=== PATIENT | male | born 1955 | race Caucasian/White ===

== ENCOUNTER 2016-12-12 14:17 | Inpatient (IN) | payer OTHER ==
--- NOTE | 2016-12-12 14:38 | CPEKG ---
Heart Rate: 99 RR Interval: 606 P-R Interval: 172 QRSD Interval: 152 QT Interval: 400 QTC Interval: 514 P [place]: 63 QRS [place]: -70 T Wave [place]: 109 EKG Severity - ABNORMAL ECG - EKG Impression: SINUS RHYTHM EKG Impression: LEFT ATRIAL ABNORMALITY EKG Impression: LEFT BUNDLE BRANCH BLOCK Electronically Signed By: Luisana Thorne 12-Dec-2016 15:18:08
[2016-12-12] MEDS ORDERED: ASPIRIN 81 MG CHEWABLE TAB PO ONE (14:42)
[2016-12-12] MEDS ORDERED: NITROGLYCERIN/DEXTROSE 250 ML IV ONE (14:42)
--- NOTE | 2016-12-12 14:52 | EDPHY ---
H & P Smoking Status: Never smoked Time Seen by Provider: 12/12/16 14:34 HPI/ROS: HPI Shortness of breath. 61-year-old male by private vehicle. This patient has a history of pulmonary hypertension, uncontrolled hypertension and congestive heart failure. He presents the emergency department complaining of progressive worsening shortness of breath over the last 2 months. He reports over the last 2-3 days his shortness of breath has gotten significantly worse with any kind of exertion. He denies any associated chest pain. No cough. No fever. ROS: Constitutional: No fever, no chills. No weakness. Eyes: No discharge. No changes in vision. ENT: No sore throat. No nasal congestion or rhinorrhea. Respiratory: No cough. No shortness of breath. Cardiac: No chest pain, no palpitations. Gastrointestinal: No abdominal pain, no vomiting, no diarrhea. Genitourinary: No hematuria. No dysuria or increased frequency with urination. Musculoskeletal: No back pain. No neck pain. No myalgias or arthralgias. Skin: No rashes. Neurological: No headache. No focal weakness or altered sensation. Past medical history: Nonischemic cardiomyopathy, pulmonary hypertension, hypertensive emergencies, systolic congestive heart failure with an ejection fraction of 25%, type 2 diabetes, acute versus chronic renal failure, traumatic brain injury, mitral valve regurgitation. Social history: On disability, no living family members, nonsmoker. Physical Exam: General Appearance: Alert, no distress. This patient is responding to questions appropriately and in full sentences. This patient appears well- hydrated and well-nourished. Eyes: Pupils equal and round no pallor or injection. No lid edema, erythema or injection. Respiratory: There are no retractions, lungs are clear to auscultation with good air movement bilaterally. Cardiovascular: Regular rate and rhythm. No murmur. Gastrointestinal: Abdomen is soft and nontender, no masses, bowel sounds normal. No focal tenderness at McBurney's point. No Cueto sign. Neurological: Motor sensory function is grossly intact. Cranial nerves are normal. Gait is normal. Skin: Warm and dry, no rashes. Musculoskeletal: Neck is supple and nontender. Extremities are symmetrical. All joints range without pain or impingement. Psychiatric: No agitation. No depression. Imaging: Chest x-ray AP portable; the cardiac mediastinal silhouette is unremarkable. No evidence of infiltrate or pneumothorax. No acute cardiopulmonary disease process noted. Interpreted by me. EKG: EKG time is 2:36 p.m.: EKG shows a sinus rhythm with ventricular rate of 99, left bundle branch block with appropriate discordance. EKG compared to prior EKG from 2016 and is not show significant changes. Interpreted by me. Procedures: Emergency department course: IV placed. He was put on a bus monitor. EKG was performed immediately reviewed by myself. Vital signs reviewed. The patient is severely hypertensive. Plan will be to start him on a nitroglycerin drip at 100 micrograms/minute for hypertensive emergency, decrease preload and afterload. Nitroglycerin drip to be titrated up to 150-200 per minute if patient tolerates this medication well. 3:00 p.m., case discussed with Dr. Anu Edwards, emergency physician attending who is coming on duty. She assumed care of this patient at this time. 3:15 p.m., patient re-evaluated. Sitting upright. He states he feels much better. Blood pressure currently 169/114. Heart rate 81. Pulse oximetry 95% on 2 L by nasal cannula. Nitroglycerin drip currently 100 micrograms/minute. Care turned over to Dr. Anu Edwards. Differential Diagnosis: The differential diagnosis on this patient includes but is not limited to congestive heart failure exacerbation, pulmonary hypertension, acute coronary syndrome, hypertensive emergency. This represents a partial list of diagnoses considered. These considerations are based on history, physical exam, past history, reassessment and diagnostic testing. (Luisana Thorne) Constitutional: Initial Vital Signs Temperature (C) 36.4 C 12/12/16 14:25 Heart Rate 98 12/12/16 14:25 Respiratory Rate 20 12/12/16 14:25 Blood Pressure 209/159 H 12/12/16 14:25 O2 Sat (%) 96 12/12/16 14:25 O2 Delivery Mode Nasal Cannula O2 (L/minute) 2 Allergies/Adverse Reactions: No Known Allergies Allergy (Verified 12/12/16 14:30) Home Medications: Medication Instructions Recorded NK [No Known Home Meds] 12/12/16 Medical Decision Making - Diagnostics Imaging Results: Imaging Impressions Chest X-Ray 12/12/16 14:43 Impression: Marked enlargement of cardiac silhouette, increased. Consider pericardial effusion or progressive cardiomegaly. Other Provider: I assumed care of this patient from Dr. Thorne at 3:00 p.m.. At that time he had been started on a nitroglycerin intravenous drip. He remained on this while under my care. He had significant improvement in his blood pressures but continued with diastolic blood pressures over 100. At the time of my exam his heart was regular, lungs were clear, abdomen soft and nontender, mentation normal. He reported to me that he had been "nodding off" while driving and this is what prompted him to come to the emergency department. He has not been taking any antihypertensive or other medications. He remained chest pain-free while in the department. He did not have shortness of breath. I reviewed his chest x-ray which shows worsening cardiomegaly compared to a previous study. This is a single-view x-ray. I have also reviewed his laboratory studies. He has an elevated BNP, mildly elevated troponin, and mildly elevated D-dimer. At this point in time I do not suspect PE and have not pursued CT angiogram of the chest. He is being admitted to Dr. Sirena Torres. (Anu Edwards) - Data Points Laboratory Results: Laboratory Results 12/12/16 14:45 12/12/16 14:45 12/12/16 12/12/16 12/12/16 14:45 14:45 14:45 WBC 11.80 10^3/uL H 10^3/uL (3.80-9.50) RBC 5.88 10^6/uL 10^6/uL (4.40-6.38) Hgb 16.7 g/dL g/dL (13.7-17.5) Hct 50.5 % % (40.0-51.0) MCV 85.9 fL fL (81.5-99.8) MCH 28.4 pg pg (27.9-34.1) MCHC 33.1 g/dL g/dL (32.4-36.7) RDW 15.0 % % (11.5-15.2) Plt Count 269 10^3/uL 10^3/uL (150-400) MPV 10.9 fL fL (8.7-11.7) Neut % (Auto) 74.5 % H % (39.3-74.2) Lymph % (Auto) 15.0 % % (15.0-45.0) [place] % (Auto) 6.9 % % (4.5-13.0) Eos % (Auto) 2.5 % % (0.6-7.6) Baso % (Auto) 0.7 % % (0.3-1.7) Nucleat RBC Rel Count 0.0 % % (0.0-0.2) Absolute Neuts (auto) 8.78 10^3/uL H 10^3/uL (1.70-6.50) Absolute Lymphs (auto) 1.77 10^3/uL 10^3/uL (1.00-3.00) Absolute Monos (auto) 0.82 10^3/uL H 10^3/uL (0.30-0.80) Absolute Eos (auto) 0.30 10^3/uL 10^3/uL (0.03-0.40) Absolute Basos (auto) 0.08 10^3/uL 10^3/uL (0.02-0.10) Absolute Nucleated RBC 0.00 10^3/uL 10^3/uL (0-0.01) Immature Gran % 0.4 % % (0.0-1.1) Immature Gran # 0.05 10^3/uL 10^3/uL (0.00-0.10) PT 14.7 SEC SEC (12.0-15.0) INR 1.15 (0.83-1.16) APTT 28.5 SEC SEC (23.0-38.0) D-Dimer 0.76 ug/mLFEU H ug/mLFEU (0.00-0.50) Sodium 141 mEq/L mEq/L (134-144) Potassium 4.2 mEq/L mEq/L (3.5-5.2) Chloride 108 mEq/L mEq/L (97-110) Carbon Dioxide 18 mEq/l L mEq/l (22-31) Anion Gap 15 mEq/L mEq/L (8-16) BUN 26 mg/dL H mg/dL (7-23) Creatinine 1.4 mg/dL H mg/dL (0.7-1.3) Estimated GFR 51 Glucose 140 mg/dL H mg/dL (70-100) Calcium 9.6 mg/dL mg/dL (8.5-10.4) Creatine Kinase 219 IU/L IU/L (0-224) CK-MB (CK-2) Fraction 5.74 ng/mL H ng/mL (0-3.19) CK-MB (CK-2) % 2.6 % % (0.0-4.0) Creatine Kinase Interp NEGATIVE (NEGATIVE) Troponin I 0.063 ng/mL H ng/mL (0-0.034) NT-Pro-B Natriuret Pep 6140 pg/mL H pg/mL (0-125) Medications Given: Discontinued Medications Aspirin (Aspirin) 324 mg PO EDNOW ONE Stop: 12/12/16 14:43 Last Admin: 12/12/16 15:00 Dose: 243 mg Nitroglycerin/Dextrose (Nitroglycerin 200 Mcg/Ml (Premix)) 250 mls @ 0 mls/hr IV CONT ONE; Titrate PRN Reason: Protocol Stop: 12/12/16 14:43 Last Admin: 12/12/16 14:58 Dose: 250 mls Departure - Departure Disposition: [facility] In[facility] Acute Clinical Impression: Hypertensive emergency
[2016-12-12 14:56] LABS: % IMMATURE GRANULYOCYTES 0.4 % (0.0-1.1); ABSOLUTE IMMATURE GRANULOCYTES 0.05 10^3/uL (0.00-0.10); ADD DIFF? NO; ADD MORPH? NO; ADD SCAN? NO; ATYPICAL LYMPHOCYTE FLAG 0 (0-99); FRAGMENT RBC FLAG 0 (0-99); HEMATOCRIT 50.5 % (40.0-51.0); HEMOGLOBIN 16.7 g/dL (13.7-17.5); LEFT SHIFT FLG 0 (0-99); LIPEMIA HEMOLYSIS FLAG 80 (0-99); MEAN CELL HEMOGLOBIN 28.4 pg (27.9-34.1); MEAN CELL HEMOGLOBIN CONCENTR. 33.1 g/dL (32.4-36.7); MEAN CELL VOLUME 85.9 fL (81.5-99.8); MEAN PLATELET VOLUME 10.9 fL (8.7-11.7); PLATELET CLUMPS FLAG 0 (0-99); PLATELET COUNT 269 10^3/uL (150-400); RED BLOOD CELL COUNT 5.88 10^6/uL (4.40-6.38)
[2016-12-12 15:05] LABS: INR 1.15 (0.83-1.16); PROTIME(PATIENT) 14.7 SEC (12.0-15.0)
[2016-12-12 15:16] LABS: APTT 28.5 SEC (23.0-38.0)
[2016-12-12 15:25] LABS: ANION GAP 15 mEq/L (8-16); CALCIUM 9.6 mg/dL (8.5-10.4); CARBON DIOXIDE 18 mEq/l (22-31); CHLORIDE 108 mEq/L (97-110); CREATININE 1.4 mg/dL (0.7-1.3); GLOMERULAR FILTRATION RATE 51; GLUCOSE 140 mg/dL (70-100); POTASSIUM 4.2 mEq/L (3.5-5.2); SODIUM 141 mEq/L (134-144)
[2016-12-12 15:37] LABS: TROPONIN I 0.063 ng/mL (0-0.034)
[2016-12-12 15:44] LABS: CREATINE KINASE-MB FRACTION 5.74 ng/mL (0-3.19)
[2016-12-12 15:47] LABS: CK-MB INTERPRETATION NEGATIVE (NEGATIVE)
[2016-12-12] MEDS ORDERED: ACETAMINOPHEN 325 MG TAB PO PRN (18:15)
[2016-12-12] MEDS ORDERED: ONDANSETRON 4 MG/2 ML VIAL IVP PRN (18:15)
[2016-12-12] MEDS ORDERED: ONDANSETRON DISINTEGRATING 4 MG TAB PO PRN (18:15)
[2016-12-12] MEDS ORDERED: LABETALOL HCL 200 MG in D5W 200 ML IV SCH (18:15)
[2016-12-12] MEDS: LISINOPRIL 10 MG TAB PO SCH (18:39)
[2016-12-12] MEDS: ATORVASTATIN CALCIUM 40 MG TAB PO SCH (18:40)
[2016-12-12] MEDS ORDERED: D50W 25 GM/50 ML SYR IVP PRN (18:45)
[2016-12-12] MEDS ORDERED: FUROSEMIDE 20 MG/2 ML VIAL IVP ONE (18:48)
[2016-12-12] MEDS ORDERED: IOPAMIDOL (ISOVUE 370) 100 ML BTL IV ONE (19:11)
--- NOTE | 2016-12-12 19:38 | GHP ---
[f rep st] HISTORY AND PHYSICAL DATE OF ADMISSION: 12/12/2016 CHIEF COMPLAINT: Dyspnea and mental status changes. HISTORY OF PRESENT ILLNESS: The patient is a 61-year-old male with a history of hypertension, nonischemic cardiomyopathy, chronic kidney disease and type 2 diabetes, who presents to the emergency department with 2 months of worsening shortness of breath and 2-3 days of mental status changes. He was admitted to the hospital in July of 2015 with hypertensive emergency. During the course of that hospitalization, he required 4 agents to achieve blood pressure control. He also underwent angiogram at that time and was found to have a nonischemic cardiomyopathy with an ejection fraction of 25%. He was apparently compliant with his medications for a brief period of time after that and followup echocardiogram in the [facility] in 09/2015 revealed an improved ejection fraction of 63% as well as improvement in his severe mitral regurgitation to mild to moderate MR. Since that time, he states he stopped all of his medications completely. He has not taken any medications for the past 8 months. He feels the medications cause side effects and are more trouble than they are worth, citing he doesn't care if he has a heart attack or stroke. In addition to worsening shortness of breath and dyspnea on exertion, he also endorses orthopnea. He has minimal lower extremity edema. At this time, he denies chest pain. He continues to feel slightly short of breath. He also reports that while driving his car, he began to feel like he was drifting off and could not think clearly. This seems to have resolved since being started on a nitroglycerin drip in the emergency department. His blood pressure on arrival was 209/159. Here on the step-down unit, it was 147/125. He is admitted to the hospital for further management. PAST MEDICAL HISTORY: 1. Nonischemic cardiomyopathy. Echo September of 2015, EF improved from 25% to 63%. 2. Chronic systolic heart failure. 3. Poorly controlled hypertension. 4. Severe pulmonary hypertension. 5. Type 2 diabetes. 6. Chronic kidney disease with a baseline creatinine of 1.4. 7. Traumatic brain injury. 8. Severe mitral regurgitation. On 09/2015 echo, this improved to mild to moderate. 9. Hyperlipidemia. 10. Nonobstructive coronary artery disease. ALLERGIES: He has no known drug allergies. SOCIAL HISTORY: The patient is unemployed. He states this is due to his brain injury. He has previously worked in finance. He is apparently on disability. He reports he is a lifetime nonsmoker. Rare alcohol use. Denies drug use. He lives alone. FAMILY HISTORY: He states both his parents of of old age and denies a family history of heart attacks, stroke, or diabetes. REVIEW OF SYSTEMS: A 10-point review of systems was performed and is negative except as per HPI. OBJECTIVE: VITAL SIGNS: Temperature is 36.4, current blood pressure 147/125, heart rate 68, respiratory rate 18. He is 96% on 2 L of oxygen by nasal cannula. GENERAL: The patient is awake, alert, and oriented, in no acute distress. He is a bit scattered in his history. HEENT: Head is atraumatic, normocephalic. Pupils equal, round, react to light. Extraocular muscles are intact. Oropharynx is clear. Mucous membranes are moist. NECK: Supple. He has elevated jugular venous pressure. HEART: Regular rate and rhythm without murmur. LUNGS: Reveal faint crackles at the bases bilaterally. ABDOMEN: Soft , obese, nondistended, nontender with normoactive bowel sounds. EXTREMITIES: He has trace to 1+ bilateral lower extremity edema. NEUROLOGIC: Grossly nonfocal. LABORATORY DATA: CBC reveals a white blood cell count of 11.8, normal hemoglobin, D-dimer is elevated at 0.76. INR is 1.15. Basic metabolic panel shows normal potassium of 4.2, CO2 was 18, BUN 26, creatinine 1.4, glucose is 140, troponin is slightly elevated at 0.063. NT-proBNP is 6140, creatine kinase 219. Chest x-ray is personally reviewed and interpreted and reveals cardiomegaly which is increased from his previous x-ray. There are no obvious infiltrates or pleural effusions. EKG shows a left bundle branch block which was present on prior EKGs. ASSESSMENT AND PLAN: The patient is a 61-year-old male with a history of hypertension, diabetes, nonischemic cardiomyopathy and chronic kidney disease who presents to the emergency department with shortness of breath and mental status changes and was found to have severe hypertension with signs of end organ damage. 1. Hypertensive emergency. He has been chest pain free and his mentation has normalized. The patient was started on a nitroglycerin drip in the ED. I will change this to IV labetalol and titrate to a goal SBP of 160 to 180. Will also start him on oral lisinopril and up titrate this as necessary. Would like to slowly bring his BP down given his presentation was consistent with hypertensive encephalopathy and want to avoid hypoperfusion. When he was discharged from the hospital in July 2015, he was on lisinopril, Coreg, Norvasc , and HCTZ. Has not taken any medications for >8 months. 2. Nonischemic cardiomyopathy. As above, his ejection fraction in July of 2015 by angiogram was 25%. This improved to 63% by September of 2015 during a brief time when he was compliant with his medications. He currently appears slightly volume up and will give a dose of IV Lasix. An echocardiogram is ordered. 3. History of severe mitral regurgitation. This improved to mild to moderate mitral regurg in September of 2015, though he has not had any followup echoes since then and has been off all of his medications for at least 8 months. As above, we will recheck an echocardiogram. Cardiology will consult in the morning. 4. Chronic kidney disease. His creatinine is at baseline of 1.4. 5. Type 2 diabetes mellitus. He has previously been diet controlled. He presents with a blood sugar of 140. We will check an A1c and an order sliding scale insulin for blood sugar control for now. 6. Hyperlipidemia. Will restart a statin. 7. Nonobstructive coronary artery disease with mildly elevated troponin. The patient is chest pain-free. His EKG shows a left bundle which was present in 2016. I suspect this is a demand ischemia given his severe hypertension on arrival; however, we will trend his troponin. Again, echo is pending. 8. Code status. Patient is full code. 9. Deep venous thrombosis prophylaxis. Lovenox. DISPOSITION: Patient is admitted to inpatient status. Will likely require greater than 48 hours hospitalization for ongoing management of his hypertensive emergency and nonischemic cardiomyopathy. /[id number]/MODL MTDD
[2016-12-13 05:52] LABS: % IMMATURE GRANULYOCYTES 0.4 % (0.0-1.1); ABSOLUTE IMMATURE GRANULOCYTES 0.04 10^3/uL (0.00-0.10); ADD DIFF? NO; ADD MORPH? NO; ADD SCAN? NO; ATYPICAL LYMPHOCYTE FLAG 0 (0-99); FRAGMENT RBC FLAG 0 (0-99); HEMATOCRIT 41.1 % (40.0-51.0); HEMOGLOBIN 13.4 g/dL (13.7-17.5); LEFT SHIFT FLG 0 (0-99); LIPEMIA HEMOLYSIS FLAG 80 (0-99); MEAN CELL HEMOGLOBIN 28.3 pg (27.9-34.1); MEAN CELL HEMOGLOBIN CONCENTR. 32.6 g/dL (32.4-36.7); MEAN CELL VOLUME 86.7 fL (81.5-99.8); MEAN PLATELET VOLUME 11.1 fL (8.7-11.7); PLATELET CLUMPS FLAG 0 (0-99); PLATELET COUNT 208 10^3/uL (150-400); RED BLOOD CELL COUNT 4.74 10^6/uL (4.40-6.38)
[2016-12-13 06:19] LABS: ANION GAP 13 mEq/L (8-16); CALCIUM 8.8 mg/dL (8.5-10.4); CARBON DIOXIDE 19 mEq/l (22-31); CHLORIDE 107 mEq/L (97-110); CREATININE 1.2 mg/dL (0.7-1.3); GLOMERULAR FILTRATION RATE > 60; GLUCOSE 98 mg/dL (70-100); POTASSIUM 3.8 mEq/L (3.5-5.2); SODIUM 139 mEq/L (134-144)
[2016-12-13] MEDS ORDERED: INSULIN LISPRO 100 UNIT/ML SC SCH (08:00)
[2016-12-13] MEDS: LISINOPRIL 10 MG TAB PO SCH (08:45)
[2016-12-13] MEDS: ATORVASTATIN CALCIUM 40 MG TAB PO SCH (08:45)
[2016-12-13 08:55] VITALS: RESP 20
[2016-12-13] MEDS ORDERED: ENOXAPARIN 40 MG/0.4 ML SYR SC SCH (09:00)
[2016-12-13] MEDS ORDERED: ASPIRIN 81 MG CHEWABLE TAB PO SCH (09:00)
--- NOTE | 2016-12-13 10:43 | ECHO ---
[id number] + + [address] : : [place] [address] : : [phone] + + Adult Echocardiographic Report + -+ :Name: Manoj SERRATO Date: 12/13/2016 09:31 AM : : Hospital Admission Number: [id number] Location: 24 2: :: 1955 Gender: Male Height: 67 in : :Age: 61 yrs Race: WH Weight: 180 lb : :Reason For Study: Hypertensive urgency : : BSA: 1.9 meters2 : :History: Severe MR, NICM : + -+ MMode/2D Measurements \T\ Calculations IVSd: 1.7 cm LVIDd: 4.5 cm FS: 15.8 % LVOT diam: 2.1 cm LVPWd: 1.1 cm LVIDs: 3.8 cm EDV(Teich): LVOT area: 91.5 ml 3.5 cm2 ESV(Teich): 60.9 ml EF(Teich): 33.5 % LVLd ap4: 9.2 cm SV(MOD-sp4): EDV(MOD-sp4): 56.0 ml 123.0 ml LVLs ap4: 9.0 cm ESV(MOD-sp4): 67.0 ml EF(MOD-sp4): 45.5 % Normal Measurement Values: + + :LVIDd (3.5-5.7cm) IVSd (0.6-1.1cm) LVPWd (0.6-1.1cm) Aortic Root (2.0-3.7cm)Left Atrium (1.5-4.0cm): :LV Vol(d) (76-115ml) LV Vol(s) (29-48ml) Ejec Fraction (50-65%)PV Eagle (0.6- 1.2m/s) TV Eagle (0.4-1.0m/s) : :MV E Eagle (0.8-1.0m/s)MV A Eagle (0.3-1.0m/s)LVOT Eagle (0.7-1.2m/s) Asc Ao Eagle ( 0.9-1.8m/s) : + + Doppler Measurements \T\ Calculations MV E max eagle: MV V2 mean: Ao mean PG: LV V1 max: 82.7 cm/sec 43.2 cm/sec 2.5 mmHg 64.7 cm/sec MV dec time: MV mean PG: Ao V2 mean: LV V1 max P.17 sec 0.85 mmHg 76.3 cm/sec 1.7 mmHg MV V2 VTI: 23.5 cm Ao V2 VTI: 16.1 cm LV V1 mean PG: MVA(VTI): 1.7 cm2 MERISSA(I,D): 2.4 cm2 0.86 mmHg LV V1 mean: 42.3 cm/sec LV V1 VTI: 11.1 cm SV(LVOT): 39.1 ml PA V2 max: PI end-d eagle: 70.8 cm/sec 81.4 cm/sec PA max P.0 mmHg Left Ventricle The left ventricle is normal in size. There is mild concentric left ventricular hypertrophy. Ejection Fraction = 40-45%. Inferolateral, inferior, and septal hypkinesis. Flattened septum is consistent with RV pressure/volume overload. Right Ventricle The right ventricle is grossly normal size. The right ventricular systolic function is moderately reduced. Atria The left atrial size is normal. Right atrial size is normal. Mitral Valve Calcified mitral apparatus. There is mild mitral regurgitation. Tricuspid Valve The tricuspid valve is normal in structure and function. There is trace tricuspid regurgitation. Aortic Valve The aortic valve is normal in structure and function. There is no aortic stenosis. Mild aortic regurgitation. Pulmonic Valve The pulmonic valve is not well visualized. Mild pulmonic valvular regurgitation. Great Vessels The aortic root is normal size. Pericardium/Pleural There is a fat pad seen. There is no pericardial effusion. Conclusion A complete two-dimensional transthoracic echocardiogram was performed (2D, M-mode, Doppler and color flow Doppler). (1) Left ventricular systolic ejection fraction was mildly suppressed (40- 45%) - inferior, inferolateral, and sepal hypokinesis was noted (2) Mild concentric left ventricular hypertrophy (3) Diastolic function was present (4) [place] normal right ventricular size and mild to moderate reduction in systolic function (5) Borderline dilation of the left atrium, with mild dilation of the right atrium noted (6) Mild to moderate mitral regurgitation with calcified mitral apparatus (7) Trileaflet aortic valve with sclerosis, but no stenosis. Mild insufficiency was noted (8) Physiologic tricuspid regurgitation (9) Poor visualization of the pulmonic valve with mild insufficiency by doppler (10) No pericardial effusion (11) In comparison to prior echocardiogram from 08-27-15, there is continued mitral valve pathology (albeit somewhat improved from prior study) and ongoing wall motion abnormalities with similar distribution and estimate on LVEF. RVSP was not able to be calculated in this study (previously elevated to >70 mm Hg). Final Reading Physician: Columba Rea signed on 12/13/2016 10:43 AM Ordering Physician: Sirena Torres Performed By: Gertrudis Pulliam
[2016-12-13] MEDS ORDERED: LISINOPRIL/HCTZ 20/12.5MG 1 EA TAB PO SCH (11:00)
[2016-12-13 12:54] VITALS: BP 137/89; PULSE 68; TEMP 98.6; O2SAT 93
[2016-12-14 00:58] LABS: HEMOGLOBIN A1C 6.7 % (4.0-6.0)
--- NOTE | 2016-12-14 02:48 | GDS ---
[f rep st] DISCHARGE SUMMARY DISCHARGE DIAGNOSES: 1. Hypertensive emergency. 2. Nonischemic cardiomyopathy. 3. Pulmonary hypertension. 4. Type 2 diabetes. 5. Chronic kidney disease. 6. History of traumatic brain injury. 7. Severe mitral regurgitation. 8. Hyperlipidemia. 9. Nonobstructive coronary artery disease. HISTORY OF PRESENT ILLNESS: A 61-year-old male with many medical comorbidities, who presents with c omplaints of shortness of breath and encephalopathy. For details of patient's initial presentation, please see the history and physical dated 12/12/2016. CONSULTATIVE SERVICES: None. PROCEDURES: On 12/13/2016, patient had a transthoracic echocardiogram that shows segmental wall mot ion abnormalities in the inferior, inferolateral, and septal distributions consistent with previous imaging. Ejection fraction unchanged at 40% to 45%. The patient has moderate mitral regurgitation. HOSPITAL COURSE BY ISSUE: 1. Hypertensive emergency. Patient presented with shortness of breath and confusion, mental status changes. He was admitted to the ICU, placed on labetalol drip, and had rapid titration of his bloo d pressure from a systolic 200 overnight to systolics in the 130s. Patient is mentating normally, p er his report. The morning after he has been initiated on oral lisinopril/hydrochlorothiazide combi nation after extensive conversations with the patient about what he is willing to take. The patient has had previous hospitalizations and been discharged on multi-drug regimens, which he reports he n ever even filled at the pharmacy. Patient is in agreement to try Zestoretic, which is a 2 drug 1 pi ll combination, once a day and follow with the procurement professional logistics in the outpatient setting. To be noted that I spent extensive time explaining the progressive pathophysiology of uncontrolled hypertension, particularly in the setting of concurrent nonischemic cardiomyopathy, CKD, and diabetes. Patient e xpresses an understanding that these are progressive disease and untreated will lead to . Padma ent is adamant that he will take very few medications and is willing to only try Zestoretic until se en in the Cardiology Clinic. 2. Nonischemic cardiomyopathy. Echo imaging shows stable ejection fraction and wall motion abnorma lities. Again, patient is refusing appropriate medications for the treatment of his cardiomyopathy. We are initiating low-dose GEGE and the Zestoretic, and again patient will follow in the outpatient setting. 3. Type 2 diabetes. Patient is refusing medications for treatment of this. 4. CKD. Patient has had progression of his renal dysfunction since 2011. He is aware that his com orbid conditions of hypertension and diabetes are his risks factors and that untreated this will pro yane to complete kidney dysfunction and the need for hemodialysis. 5. Indeterminate troponin. These are similar level as those seen on his last hospitalization with nonocclusive coronary artery disease on catheterization. Patient is not interested in having cardia c catheterization or additional risk stratification at this time. He will follow in [facility] or outpatient monitoring. MEDICATIONS AT THE TIME OF DISPOSITION: Please reference med rec printed on 12/13/2016. FOLLOWUP APPOINTMENTS: Include in the next 1-2 weeks. PENDING STUDIES: At the time of this dictation are none. TIME SPENT: I spent greater than 30 minutes in the planning and coordination of this discharge. /[id number]/MODL
== END 2016-12-13 14:36 | disposition home or self-care (01) | DRG 304 ==
LOC: F2N 17:57
PROVIDERS: ADMIT Hospitalist; ATTEND Hospitalist
DX: I16.0 Hypertensive urgency (principal); G93.40 Encephalopathy, unspecified; I25.5 Ischemic cardiomyopathy; I27.2 Other secondary pulmonary hypertension; E11.9 Type 2 diabetes mellitus without complications; I12.9 Hypertensive chronic kidney disease with stage 1 through stage 4 chronic kidney disease, or unspecified chronic kidney disease; N18.9 Chronic kidney disease, unspecified; I34.0 Nonrheumatic mitral (valve) insufficiency; E78.5 Hyperlipidemia, unspecified; I25.10 Atherosclerotic heart disease of native coronary artery without angina pectoris
CPT/HCPCS: 96365; 96366; J1650; J1940; J3490; Q9967

== ENCOUNTER 2017-01-01 10:24 | Inpatient (IN) | payer OTHER ==
--- NOTE | 2017-01-01 10:49 | CPEKG ---
Heart Rate: 122 RR Interval: 492 QRSD Interval: 156 QT Interval: 392 QTC Interval: 559 QRS [place]: -67 T Wave [place]: 110 EKG Severity - ABNORMAL ECG - EKG Impression: ATRIAL FIBRILLATION EKG Impression: LEFT BUNDLE BRANCH BLOCK EKG Impression: INFERIOR Q WAVES, POSSIBLY DUE TO LBBB Electronically Signed By: Case Lion 01-Jan-2017 13:29:02
[2017-01-01] MEDS ORDERED: DILTIAZEM 125 MG in D5W 125 ML IV ONE (10:57)
[2017-01-01] MEDS ORDERED: DABIGATRAN ETEXILATE MESYL 150 MG CAP PO ONE (10:57)
--- NOTE | 2017-01-01 11:02 | EDPHY ---
H & P Time Seen by Provider: 01/01/17 10:35 HPI/ROS: CHIEF COMPLAINT: Shortness of breath and weakness and hypertension HISTORY OF PRESENT ILLNESS: Patient was discharged on December 13 after being admitted for hypertensive emergency and nonischemic cardiomyopathy. He did not continue his medications except for aspirin because he said that he lost vision in his left eye a couple of days after being discharged and made him feel terrible so he stopped. He presents with continued nausea, a week of worsening shortness of breath, fatigue, and hypertension. Symptoms are severe but not associated with chest pain or headache or lower extremity swelling. REVIEW OF SYSTEMS: Eye: no change in vision, vision normal today ENT: no sore throat Cardiac: no chest pain or syncope Pulmonary: HPI Abdomen: no vomiting, diarrhea, abdominal pain Musculoskeletal: no back pain or leg swelling Skin: no rash Neuro: no headache Constitutional: no fever : no urinary symptoms A comprehensive 10 point review of systems is otherwise negative aside from elements mentioned in the history of present illness. PAST MEDICAL HISTORY: Discharge summary dated 12/13/2016 personally reviewed includes hypertension, nonischemic cardiomyopathy, pulmonary hypertension, type 2 diabetes, history traumatic brain injury, mitral regurgitation, hyperlipidemia. Chronic kidney disease. Social history: Nonsmoker General Appearance: Alert and conversant, cooperative. Eyes: No scleral icterus. ENT, Mouth: Normal mucous membranes. Respiratory: Normal respiratory effort, breath sounds equal, lungs are clear to auscultation. Cardiovascular: Irregular rate and rhythm tachycardic Gastrointestinal: Abdomen is soft and non tender. Neurological: Alert and oriented x3. Normally conversant. Face symmetric, normal movement and sensation in all extremities. Skin: Warm and dry, no rashes. Musculoskeletal: No peripheral edema and no joint swelling. No calf tenderness. Psychiatric: Not agitated. Emergency Department course/MDM: Patient presents with atrial fibrillation and hypertension, symptomatic. Diltiazem drip started in the emergency department, anticoagulation discussed and consented. Oral Pradaxa 150. 1255: hr 104, decreased. Smoking Status: Never smoked Constitutional: Initial Vital Signs Temperature (C) 36.3 C 01/01/17 10:27 Heart Rate 129 H 01/01/17 10:27 Respiratory Rate 16 01/01/17 10:27 Blood Pressure 154/131 H 01/01/17 10:27 O2 Sat (%) 98 01/01/17 10:27 O2 Delivery Mode Room Air Allergies/Adverse Reactions: No Known Allergies Allergy (Verified 12/12/16 14:30) Home Medications: Medication Instructions Recorded Aspirin [Aspirin 81mg (*)] 81 mg PO HS 01/01/17 Herbals/Supplements -Info Only 1 ea PO DAILY 01/01/17 Medical Decision Making - Diagnostics EKG Interpretation: 12-lead EKG interpreted by me; official reading is in trace master. My interpretation is atrial fibrillation rate 122 with left bundle branch block. Imaging Results: Imaging Impressions Chest X-Ray 01/01/17 10:57 Impression: Cardiomegaly with stable peribronchial thickening, which could be related to mild fluid overload, without freddy failure Differential Diagnosis: Differential diagnosis considered for shortness of breath including but not limited to pulmonary infectious process, COPD, asthma, pulmonary embolus and congestive heart failure. Consult/Admit Bed Type: [place] [id number] Critical Care Time: Critical care time spent by me, Dr. Lion, exclusively with the care of this patient was [30] minutes, exclusive of PA or PRODUCT MARKETING CONSULTANT time and exclusive of separate procedures. The organ system at risk was cardiovascular and I ordered diltiazem , oral Pradaxa, discussion with hospitalist service to stabilize the patient and prevent worsening of the patient's condition. - Data Points Laboratory Results: Laboratory Results 01/01/17 10:53 01/01/17 10:53 01/01/17 01/01/17 10:53 10:53 WBC 11.11 10^3/uL H 10^3/uL (3.80-9.50) RBC 6.26 10^6/uL 10^6/uL (4.40-6.38) Hgb 17.4 g/dL g/dL (13.7-17.5) Hct 52.8 % H % (40.0-51.0) MCV 84.3 fL fL (81.5-99.8) MCH 27.8 pg L pg (27.9-34.1) MCHC 33.0 g/dL g/dL (32.4-36.7) RDW 16.1 % H % (11.5-15.2) Plt Count 278 10^3/uL 10^3/uL (150-400) MPV 11.2 fL fL (8.7-11.7) Neut % (Auto) 73.2 % % (39.3-74.2) Lymph % (Auto) 16.1 % % (15.0-45.0) [place] % (Auto) 8.1 % % (4.5-13.0) Eos % (Auto) 1.7 % % (0.6-7.6) Baso % (Auto) 0.5 % % (0.3-1.7) Nucleat RBC Rel Count 0.0 % % (0.0-0.2) Absolute Neuts (auto) 8.13 10^3/uL H 10^3/uL (1.70-6.50) Absolute Lymphs (auto) 1.79 10^3/uL 10^3/uL (1.00-3.00) Absolute Monos (auto) 0.90 10^3/uL H 10^3/uL (0.30-0.80) Absolute Eos (auto) 0.19 10^3/uL 10^3/uL (0.03-0.40) Absolute Basos (auto) 0.06 10^3/uL 10^3/uL (0.02-0.10) Absolute Nucleated RBC 0.00 10^3/uL 10^3/uL (0-0.01) Immature Gran % 0.4 % % (0.0-1.1) Immature Gran # 0.04 10^3/uL 10^3/uL (0.00-0.10) Sodium 134 mEq/L mEq/L (134-144) Potassium 4.2 mEq/L mEq/L (3.5-5.2) Chloride 100 mEq/L mEq/L (97-110) Carbon Dioxide 20 mEq/l L mEq/l (22-31) Anion Gap 14 mEq/L mEq/L (8-16) BUN 33 mg/dL H mg/dL (7-23) Creatinine 1.5 mg/dL H mg/dL (0.7-1.3) Estimated GFR 47 Glucose 141 mg/dL H mg/dL (70-100) Calcium 9.8 mg/dL mg/dL (8.5-10.4) Troponin I 0.051 ng/mL H ng/mL (0-0.034) NT-Pro-B Natriuret Pep 7140 pg/mL H pg/mL (0-125) Medications Given: Discontinued Medications Dabigatran (Pradaxa) 150 mg PO EDNOW ONE Stop: 01/01/17 10:58 Last Admin: 01/01/17 11:37 Dose: 150 mg Diltiazem HCl 125 mg/ Dextrose 125 mls @ 0 mls/hr IV EDNOW ONE; As Directed PRN Reason: Protocol Stop: 01/01/17 10:58 Last Admin: 01/01/17 11:38 Dose: 125 mls Departure - Departure Disposition: [facility] Acute Clinical Impression: Elevated troponin Atrial fibrillation Qualifiers: Atrial fibrillation type: paroxysmal Qualified Code(s): I48.0 - Paroxysmal atrial fibrillation Condition: Fair
[2017-01-01 11:04] LABS: % IMMATURE GRANULYOCYTES 0.4 % (0.0-1.1); ABSOLUTE IMMATURE GRANULOCYTES 0.04 10^3/uL (0.00-0.10); ADD DIFF? NO; ADD MORPH? NO; ADD SCAN? NO; ATYPICAL LYMPHOCYTE FLAG 0 (0-99); FRAGMENT RBC FLAG 0 (0-99); HEMATOCRIT 52.8 % (40.0-51.0); HEMOGLOBIN 17.4 g/dL (13.7-17.5); LEFT SHIFT FLG 0 (0-99); LIPEMIA HEMOLYSIS FLAG 80 (0-99); MEAN CELL HEMOGLOBIN 27.8 pg (27.9-34.1); MEAN CELL VOLUME 84.3 fL (81.5-99.8); MEAN PLATELET VOLUME 11.2 fL (8.7-11.7); PLATELET CLUMPS FLAG 0 (0-99); PLATELET COUNT 278 10^3/uL (150-400); RED BLOOD CELL COUNT 6.26 10^6/uL (4.40-6.38); RED CELL DISTRIBUTION WIDTH 16.1 % (11.5-15.2)
[2017-01-01 11:24] LABS: ANION GAP 14 mEq/L (8-16); CALCIUM 9.8 mg/dL (8.5-10.4); CARBON DIOXIDE 20 mEq/l (22-31); CHLORIDE 100 mEq/L (97-110); CREATININE 1.5 mg/dL (0.7-1.3); GLOMERULAR FILTRATION RATE 47; GLUCOSE 141 mg/dL (70-100); POTASSIUM 4.2 mEq/L (3.5-5.2); SODIUM 134 mEq/L (134-144)
[2017-01-01 11:36] LABS: TROPONIN I 0.051 ng/mL (0-0.034)
[2017-01-01] MEDS ORDERED: ONDANSETRON DISINTEGRATING 4 MG TAB PO PRN (14:32)
[2017-01-01] MEDS ORDERED: ACETAMINOPHEN 325 MG TAB PO PRN (14:32)
[2017-01-01] MEDS ORDERED: ONDANSETRON 4 MG/2 ML VIAL IVP PRN (14:32)
[2017-01-01] MEDS ORDERED: FUROSEMIDE 40 MG/4 ML VIAL IVP ONE (14:38)
[2017-01-01] MEDS: amLODIPine BESYLATE 5 MG TAB PO SCH (15:12)
--- NOTE | 2017-01-01 15:19 | GHP ---
[f rep st] HISTORY AND PHYSICAL DATE OF ADMISSION: 01/01/2017 The patient is a 61-year-old gentle with untreated hypertension, nonischemic cardiomyopathy, who pre sents to the hospital with shortness of breath. He was here in November of this year with hypertensive crisis or urgency. He was discharged on lisinopril/hydrochlorothiazide. He took it for a couple of days. He said it made him feel poorly and had blurred vision and he describes actually an episode that sounds somewhat like transient monocular blindness. He has not had any sort of left-sided or r ight-sided weakness. The transient monocular blindness in the left side. He has not been taking hi s medications. He has a history of traumatic brain injury and he is somewhat of a difficult histori an, speaking in very vague terms and with no apparent difficult to follow but it sounds l dedra he has had dyspnea on exertion and decreased activity. He has declined many interventions in e past including an angiogram, etc. During the last admission, he had an echocardiogram that showed EF of 45% with some focal wall motion abnormalities, mild concentric LVH with diastolic dysfunction . He has had slightly enlarged atrium at that point. The patient has not had PND, orthopnea or low er extremity edema. He has had dyspnea. He has not had any chest pain, chest pressure. He does no t smoke cigarettes or drink alcohol. It sounds like he lives alone. He is currently on disability secondary to a brain injury. REVIEW OF SYSTEMS: Complete 10-point review of systems conducted negative except as noted in the HP I. PAST MEDICAL HISTORY: 1. Left bundle branch block pattern. 2. Nonischemic cardiomyopathy. 3. Severe pulmonary hypertension. 4. Type 2 diabetes on no medications. 5. Chronic kidney disease, baseline creatinine 1.4. 6. Traumatic brain injury. 7. Mitral regurgitation. 8. Hyperlipidemia. 9. Nonobstructive coronary disease. ALLERGIES: He has no known drug allergies but he does not tolerate Zestoretic. HOME MEDICATIONS: Aspirin and Zestoretic. He was not taking the Zestoretic. SOCIAL HISTORY: Lives alone. No tobacco. No alcohol. Originally from [place]. On disability. FAMILY HISTORY: Negative for coronary disease. PHYSICAL EXAMINATION: PRESENTING VITALS: Temp 36.3, blood pressure 151/131, pulse 129, breathing 1 6 times a minute, 98% on room air. GENERAL: No acute distress. Sclerae anicteric. Oropharynx ghulam ar. Mucous membranes moist. NECK: Supple without lymphadenopathy or JVD. LUNGS: Clear to auscul tation bilaterally. HEART: S1, S2. ABDOMEN: Soft, nontender, nondistended. LOWER EXTREMITIES: Without edema. Calves nontender. SKIN: Without rash. NEUROLOGIC: Nonfocal. Sodium 134, potassium 4.2, chloride 100, bicarb 20, BUN 33, creatinine 1.5, glucose 141. Troponin 0 .051 which seems to be about where he lives. BNP is 7000 which is slightly high for him. There is no D-dimer. White count is 11.1, hematocrit 52, platelets are 278,000. EKG interpreted by me shows AFib at 120 with left bundle branch block pattern. The left bundle is not new. Chest x-ray interp reted by me shows cardiomegaly with mild volume overload. I have discussed the case with Dr. Case archibald. ASSESSMENT/PLAN: 61-year-old gentleman with poorly controlled hypertension, nonischemic cardiomyopa thy, here with new atrial fibrillation. 1. New atrial fibrillation. The patient has an elevated CHADS-VASc. I have low confidence that he would be willing to take a blood thinner, but for the time being, we will start him on Eliquis and oral diltiazem given his elevated rate. He is on a diltiazem drip right now. I have asked the nurs e to taper down. His CHADS-VASc is at least 3. 2. Hypertension. He is on no medications. I will start him on Norvasc. We will continue his dilt iazem. 3. Transient monocular blindness. He is on an aspirin. He has no focal neurologic symptoms now. We will get a carotid ultrasound. 4. Elevated creatinine. I feel like he is about at his baseline. I do not think he is clinically dry, so I am actually going to give him a dose of diuretics and follow. DISPOSITION: Inpatient status. /[id number]/MODL
[2017-01-01] MEDS: DILTIAZEM 30 MG TAB PO SCH (18:36)
[2017-01-01] MEDS: ASPIRIN 81 MG CHEWABLE TAB PO SCH (20:59)
[2017-01-01] MEDS: APIXABAN 5 MG TAB PO SCH (20:59)
[2017-01-01] MEDS ORDERED: APIXABAN 5 MG TAB PO SCH (21:00)
[2017-01-02] MEDS: DILTIAZEM 30 MG TAB PO SCH ×3 (00:12→11:39)
[2017-01-02 04:15] LABS: ANION GAP 14 mEq/L (8-16); CALCIUM 9.7 mg/dL (8.5-10.4); CARBON DIOXIDE 21 mEq/l (22-31); CHLORIDE 100 mEq/L (97-110); CREATININE 1.5 mg/dL (0.7-1.3); GLOMERULAR FILTRATION RATE 47; GLUCOSE 117 mg/dL (70-100); POTASSIUM 4.6 mEq/L (3.5-5.2); SODIUM 135 mEq/L (134-144)
[2017-01-02 04:24] LABS: TROPONIN I 0.049 ng/mL (0-0.034)
[2017-01-02] MEDS: amLODIPine BESYLATE 5 MG TAB PO SCH (07:34)
[2017-01-02] MEDS: APIXABAN 5 MG TAB PO SCH ×2 (07:35→20:17)
--- NOTE | 2017-01-02 13:50 | HOSPPROG ---
Hospitalist Progress Note Assessment/Plan: 61-year-old noncompliant man with a history of closed head injury and memory loss is admitted with shortness of breath and mental status changes. He has a history of a cardiomyopathy thought secondary to be hypertensive complicated by left bundle branch block and new onset AFib. # new AFib, high risk for stroke. Likely related to uncontrolled hypertension.. Discussed with Dr. Schaefer * Add Coreg and continue Eliquis * Get blood pressure under better control # hypertension complicated by hypertensive cardiomyopathy. * Adjust medications including adding Coreg, Lasix and Aldactone will continue Norvasc and follow * Patient will need follow up with [facility] after discharge * Has refused angiogram in the past. # severe pulmonary hypertension, continue Lasix and blood pressure control as tolerated # systolic cardiomyopathy, followed by [facility] this was felt to be secondary to severe uncontrolled hypertension. * Control blood pressure as above * Add Coreg * Patient is intolerant of Micheal inhibitors by symptoms and Arb, will defer to Cardiology as outpatient to add these as able * Patient has continued symptoms of heart failure and uncontrolled blood pressure. He will need greater than 2 midnight stay for ongoing medical management of this. # closed head injury and a history of noncompliance # possible bipolar disease Subjective: Patient new to me and chart reviewed. Patient complaining of all medications he has been given thinks he has side effects to room and is feeling frustrated. He is threatening to leave AMA but hopefully he will stay for better control of his blood pressure prior to discharge. Will continue Eliquis for now for anticoagulation Objective: Vital Signs Temp Pulse Resp BP Pulse Ox 36.8 C 95 18 169/106 H 95 01/02/17 12:00 01/02/17 12:00 01/02/17 12:00 01/02/17 12:00 01/02/17 12:00 Laboratory Results 01/02/17 03:30 01/01/17 01/02/17 01/03/17 05:59 05:59 05:59 Intake Total 350 Output Total 775 Balance -425 - Physical Exam Constitutional: appears nourished, not in pain Eyes: PERRL, EOMI Ears, Nose, Mouth, Throat: moist mucous membranes, hearing normal Cardiovascular: regular rate and rhythym, no murmur, rub, or gallop Respiratory: no respiratory distress, reduced air movement, inspiratory crackles Gastrointestinal: normoactive bowel sounds, soft, non-tender abdomen Genitourinary: no bladder fullness Skin: warm, normal color Musculoskeletal: no joint effusions Neurologic: AAOx3 Psychiatric: interacting appropriately, poor insight, poor judgement Lymph, Heme, Immunologic: no cervical LAD ICD10 Worksheet Patient Problems: Problems Problem Status Onset Hypertension Acute Hypertensive urgency, malignant Acute Elevated troponin Acute New onset left bundle branch block (LBBB) Acute Hypertensive emergency Acute Atrial fibrillation Acute
[2017-01-02] MEDS: FUROSEMIDE 40 MG TAB PO SCH (14:02)
[2017-01-02] MEDS: CARVEDILOL 25 MG TAB PO SCH (17:34)
[2017-01-02] MEDS: ASPIRIN 81 MG CHEWABLE TAB PO SCH (20:17)
[2017-01-03 05:36] LABS: ANION GAP 14 mEq/L (8-16); CALCIUM 9.3 mg/dL (8.5-10.4); CARBON DIOXIDE 22 mEq/l (22-31); CHLORIDE 100 mEq/L (97-110); CREATININE 1.3 mg/dL (0.7-1.3); GLOMERULAR FILTRATION RATE 56; GLUCOSE 109 mg/dL (70-100); POTASSIUM 4.2 mEq/L (3.5-5.2); SODIUM 136 mEq/L (134-144)
[2017-01-03] MEDS: CARVEDILOL 25 MG TAB PO SCH (08:14)
[2017-01-03] MEDS: APIXABAN 5 MG TAB PO SCH (08:16)
[2017-01-03] MEDS: FUROSEMIDE 40 MG TAB PO SCH (08:17)
[2017-01-03] MEDS: amLODIPine BESYLATE 5 MG TAB PO SCH (08:17)
[2017-01-03] MEDS ORDERED: SPIRONOLACTONE 25 MG TAB PO SCH (09:00)
[2017-01-03 12:28] VITALS: BP 110/89; PULSE 74; RESP 18; TEMP 97.7; O2SAT 97
--- NOTE | 2017-01-03 16:06 | GDS ---
[f rep st] DISCHARGE SUMMARY DIAGNOSES: 1. New onset atrial fibrillation. 2. Hypertensive cardiomyopathy. 3. Severe hypertension. 4. Severe pulmonary hypertension. 5. History of closed head injury and noncompliance. 6. Questionable history of bipolar disease. PROCEDURES DONE: Carotid Doppler: No evidence of flow limiting stenosis. HOSPITAL COURSE: The patient is a 61-year-old man, who came in with some lightheadedness and woozin ess. He was found to be in atrial fibrillation with severe hypertension. He was recently admitted here in November, with hypertensive crisis or urgency, and was started on lisinopril/hydrochlorothiazide . He took it for a couple of days, but felt horrible, so stopped the medication and has not been on anything since. Upon admission here, he was in new onset AFib. He was started on Cardizem and giv en a dose of Lasix. He said the Lasix helped him feel better, however, with the Cardizem he felt te rrible, and his blood pressure was still elevated. During his hospitalization, his medications were changed to include amlodipine 5 mg daily, Coreg 12.5 b.i.d., Lasix 40 mg daily, and Aldactone 25 mg daily. He felt quite well on this, and his blood pressure was well controlled. He was rate contro lled, and was on Eliquis for anticoagulation. At this time, he is stable for discharge home. He ne eds to have close followup with [facility]. I set him up with Dr. Ke Funez for a second opini on at [facility], and he is to continue the above medications. He was intolerant of an GEGE inhib itor due to visual changes and lightheadedness, and can have a trial of ARB as an outpatient. CONDITION ON DISCHARGE: Good. He is afebrile, he is alert and oriented. Heart rate 74, blood pres sure 110/89, he is 97% on room air. He is feeling much improved. No chest pain. No shortness of b reath. His energy is back. DISCHARGE MEDICATIONS: Please see discharge medication form. FOLLOWUP INSTRUCTIONS: He needs to follow up with [facility], I did give him the name of Dr. Rob Funez, as he would like to see a different provider on followup, and I gave him 30 days of prescr iptions, he needs to follow up prior to those ending. Total time since with the patient on day of discharge and coordination of care is 35 minutes. /[id number]/MODL
== END 2017-01-03 14:17 | disposition home or self-care (01) | DRG 310 ==
LOC: F2W 13:07
PROVIDERS: ADMIT Internal Medicine; ATTEND Internal Medicine
DX: I48.91 Unspecified atrial fibrillation (principal); I11.9 Hypertensive heart disease without heart failure; I27.2 Other secondary pulmonary hypertension; T46.4X6A Underdosing of angiotensin-converting-enzyme inhibitors, initial encounter; E11.9 Type 2 diabetes mellitus without complications; E78.5 Hyperlipidemia, unspecified; Z91.128 Patient's intentional underdosing of medication regimen for other reason
CPT/HCPCS: 92523-GN; 96374; G9165-GN-CJ; G9166-GN-CJ; G9167-GN-CJ; J1940

== ENCOUNTER 2017-07-12 08:48 | Observation (INO) | payer OTHER ==
--- NOTE | 2017-07-12 09:06 | CPEKG ---
Heart Rate: 133 RR Interval: 451 QRSD Interval: 148 QT Interval: 368 QTC Interval: 548 QRS [place]: -87 T Wave [place]: 108 EKG Severity - ABNORMAL ECG - EKG Impression: ATRIAL FIBRILLATION EKG Impression: IVCD, CONSIDER ATYPICAL LBBB Electronically Signed By: Mukesh Cates 12-Jul-2017 15:07:30
[2017-07-12 09:17] LABS: PLATELET COUNT 310 10^3/uL (150-400)
[2017-07-12] MEDS ORDERED: ENOXAPARIN 80 MG/0.8 ML SYR SC ONE (09:22)
[2017-07-12] MEDS ORDERED: DILTIAZEM 25 MG/5 ML VIAL IVP ONE (09:22)
--- NOTE | 2017-07-12 09:22 | EDPHY ---
H & P Stated Complaint: Sob x 5 days-has stopped all meds due to insurance and "side effects" - Personal History Current Tetanus/Diphtheria Vaccine: Unsure Current Tetanus Diphtheria and Acellular Pertussis (TDAP): Unsure - Medical/Surgical History Hx Asthma: No Hx Chronic Respiratory Disease: No Hx Diabetes: No Hx Cardiac Disease: Yes Hx Renal Disease: No Hx Cirrhosis: No Hx Alcoholism: No Hx HIV/AIDS: No Hx Splenectomy or Spleen Trauma: No Other PMH: pmh- htn, angiogram, TBI, Afib - Social History Smoking Status: Never smoked Time Seen by Provider: 07/12/17 09:06 HPI/ROS: CHIEF COMPLAINT: HISTORY OF PRESENT ILLNESS: 61-year-old male with known history of atrial fibrillation, history of hospitalization for similar, drove to the ER complaining of progressive dyspnea , exertional chest pain, decreased exercise capacity over the past 1 week. He stopped all his medications on 06/13/2017 including his antihypertensives, his anticoagulants, secondary to cost and compliance. He denies: Illicit drug use, back pain, syncope, near syncope, PRIMARY CARE PROVIDER: No primary care provider. Primary audit reviewer Dr. Ke Martines, [facility] REVIEW OF SYSTEMS: A ten point review of systems was performed and is negative with the exception of the items mentioned in the HPI PAST MEDICAL & SURGICAL HISTORY: Atrial fibrillation. Hypertension. Pulmonary hypertension. SOCIAL HISTORY:Nonsmoker. No drug use. [ PHYSICAL EXAM (Prior to examination, patient consented to physical exam, hands were washed and my usual and customary physical exam procedures followed) 1) GENERAL: Well-developed, well-nourished, alert and oriented. Appears to be in no acute distress. 2) HEAD: Normocephalic, atraumatic 3) HEENT: Pupils equal, round, reactive to light bilaterally. Sclera anicteric. Nasopharynx, oropharynx, clear, no lesions. Ears bilaterally with normal tympanic membranes. 4) NECK: Full range of motion, no meningeal signs. No carotid bruit 5) LUNGS: Clear auscultation bilaterally, no wheezes, no rhonchi, no retractions. 6) HEART: Regular rate and rhythm, no murmur, no heave, no gallop. 7) ABDOMEN: No guarding, no rebound, no focal tenderness, negative McBurney's, negative Cueto's, negative Rovsing's, negative peritoneal sign, 8) MUSCULOSKELETAL: Moving all extremities, no focal areas of tenderness, no obvious trauma. No peripheral edema or discoloration. 9) BACK: No CVA tenderness, no midline vertebral tenderness, no fluctuance, no step-off, no obvious trauma, no visual or palpable abnormality. 10) SKIN: No rash, no petechiae. 11) Psychiatric: Patient is oriented X 3, there is no agitation. DIFFERENTIAL DIAGNOSIS: In no particular include but limited to [place], rapid atrial fibrillation, pulmonary embolus, CHF (Samson Montanez) Constitutional: Initial Vital Signs Temperature (C) 36.7 C 07/12/17 08:52 Heart Rate 112 H 07/12/17 08:52 Respiratory Rate 22 H 07/12/17 08:52 Blood Pressure 188/101 H 07/12/17 08:52 O2 Sat (%) 95 07/12/17 08:52 O2 Delivery Mode Nasal Cannula O2 (L/minute) 2 Allergies/Adverse Reactions: No Known Allergies Allergy (Verified 12/12/16 14:30) Home Medications: Medication Instructions Recorded Aspirin [Aspirin 81mg (*)] 81 mg PO HS 01/01/17 Herbals/Supplements -Info Only 1 ea PO DAILY 01/01/17 Apixaban [Eliquis] 5 mg PO BID #60 tab 01/03/17 Carvedilol [Coreg (*)] 12.5 mg PO BIDMEAL #30 tab 01/03/17 Furosemide [Lasix 40 MG (*)] 40 mg PO DAILY #30 tab 01/03/17 Spironolactone [Aldactone 25 MG 25 mg PO DAILY #30 tab 01/03/17 (*)] amLODIPine BESYLATE [Norvasc 5 mg 5 mg PO DAILY #30 tab 01/03/17 (*)] Medical Decision Making - Diagnostics Imaging Results: Imaging Impressions Chest X-Ray 07/12/17 09:07 Impression: Moderate cardiomegaly. Increasing interstitial thickening suggesting interstitial pulmonary edema versus interstitial pneumonitis.. Images reviewed myself (Samson Montanez) ED Course/Re-evaluation: I evaluated this patient and review the old medical records and the recent medical data with [facility]. We have given this patient 20 mg of diltiazem IV followed by 20 milligram/hour drip. Additionally we have started anticoagulation again. This patient is in atrial fibrillation with rapid ventricular rate of slightly bumped troponin from heart strain pattern and elevated BNP. He will go to PCU. Cardiology has been consulted. (Mukesh Cates) 9:19 a.m.: Old medical records reviewed, case discussed with secondary supervising physician Dr. Mukesh Cates in the ER. Plan will be is diltiazem, Lovenox anticoagulant, admission. 9:54 am: Dr Cates consulted with Dr Fuad Gibson who will consult cardiology 10:26 a.m.: Consultation with Gracy, hospitalist, admit to Dr. Pichardo PCU ( Samson Montanez) - Data Points Laboratory Results: Laboratory Results 07/12/17 09:07 07/12/17 09:07 07/12/1718 07/12/17 09:07 09:07 09:07 WBC RBC Hgb Hct MCV MCH MCHC RDW Plt Count MPV Neut % (Auto) Lymph % (Auto) [place] % (Auto) Eos % (Auto) Baso % (Auto) Nucleat RBC Rel Count Absolute Neuts (auto) Absolute Lymphs (auto) Absolute Monos (auto) Absolute Eos (auto) Absolute Basos (auto) Absolute Nucleated RBC Immature Gran % Immature Gran # PT 14.6 SEC SEC (12.0-15.0) INR 1.12 (0.83-1.16) APTT 29.2 SEC SEC (23.0-38.0) Sodium 139 mEq/L mEq/L (135-145) Potassium 4.1 mEq/L mEq/L (3.5-5.2) Chloride 101 mEq/L mEq/L (97-110) Carbon Dioxide 19 mEq/l L mEq/l (22-31) Anion Gap 19 mEq/L H mEq/L (8-16) BUN 30 mg/dL H mg/dL (7-23) Creatinine 1.4 mg/dL H mg/dL (0.7-1.3) Estimated GFR 51 Glucose 160 mg/dL H mg/dL (70-100) Calcium 10.1 mg/dL mg/dL (8.5-10.4) Troponin I 0.047 ng/mL H ng/mL (0.000-0.034) NT-Pro-B Natriuret Pep Pending 07/12/17 09:07 WBC 10.29 10^3/uL H 10^3/uL (3.80-9.50) RBC 5.60 10^6/uL 10^6/uL (4.40-6.38) Hgb 17.2 g/dL g/dL (13.7-17.5) Hct 51.3 % H % (40.0-51.0) MCV 91.6 fL fL (81.5-99.8) MCH 30.7 pg pg (27.9-34.1) MCHC 33.5 g/dL g/dL (32.4-36.7) RDW 14.3 % % (11.5-15.2) Plt Count 310 10^3/uL 10^3/uL (150-400) MPV 10.8 fL fL (8.7-11.7) Neut % (Auto) 70.1 % % (39.3-74.2) Lymph % (Auto) 18.3 % % (15.0-45.0) [place] % (Auto) 9.2 % % (4.5-13.0) Eos % (Auto) 1.3 % % (0.6-7.6) Baso % (Auto) 0.7 % % (0.3-1.7) Nucleat RBC Rel Count 0.0 % % (0.0-0.2) Absolute Neuts (auto) 7.22 10^3/uL H 10^3/uL (1.70-6.50) Absolute Lymphs (auto) 1.88 10^3/uL 10^3/uL (1.00-3.00) Absolute Monos (auto) 0.95 10^3/uL H 10^3/uL (0.30-0.80) Absolute Eos (auto) 0.13 10^3/uL 10^3/uL (0.03-0.40) Absolute Basos (auto) 0.07 10^3/uL 10^3/uL (0.02-0.10) Absolute Nucleated RBC 0.00 10^3/uL 10^3/uL (0-0.01) Immature Gran % 0.4 % % (0.0-1.1) Immature Gran # 0.04 10^3/uL 10^3/uL (0.00-0.10) PT INR APTT Sodium Potassium Chloride Carbon Dioxide Anion Gap BUN Creatinine Estimated GFR Glucose Calcium Troponin I NT-Pro-B Natriuret Pep Medications Given: Discontinued Medications Diltiazem HCl (Cardizem 25 Mg/5 Ml Vial) 20 mg IVP EDNOW ONE Stop: 07/12/17 09:23 Last Admin: 07/12/17 09:50 Dose: 20 mg Enoxaparin Sodium (Lovenox) 80 mg SC EDNOW ONE Stop: 07/12/17 09:23 Last Admin: 07/12/17 09:59 Dose: 80 mg Diltiazem HCl 125 mg/ Dextrose 125 mls @ 0 mls/hr IV EDNOW ONE; As Directed PRN Reason: Protocol Stop: 07/12/17 09:25 Last Admin: 07/12/17 09:50 Dose: 125 mls Departure - Departure Disposition: [facility] Acute Clinical Impression: Elevated troponin Atrial fibrillation Qualifiers: Atrial fibrillation type: chronic Qualified Code(s): I48.2 - Chronic atrial fibrillation Condition: Fair Referrals: NONE *PRIMARY CARE P,. [Primary Care Provider] - As per Instructions
[2017-07-12] MEDS ORDERED: DILTIAZEM 125 MG in D5W 125 ML IV ONE (09:24)
[2017-07-12 10:18] LABS: INR 1.12 (0.83-1.16); PROTIME(PATIENT) 14.6 SEC (12.0-15.0)
--- NOTE | 2017-07-12 15:40 | PDCARPN ---
Cardiology Progress Note Assessment/Plan: 61-year-old male with a history of chronic atrial fibrillation, hypertension, nonischemic cardiomyopathy, chronic systolic CHF, and left bundle branch block. Familiar to me from a hospital stay in 2016. Presents with increasing shortness of breath over the past several days. Of note, the patient stopped taking all of his medications on the 13 of June. He cited side effects and cost of his Eliquis as his reasons. Has also noted some mild lower extremity edema. No orthopnea or PND. Does not have chest discomfort. In the emergency room, his BNP was significantly elevated at 8500. His troponin was minimally elevated at 0.047 likely indicating myocardial supply/demand mismatch in the setting of his rapid atrial fibrillation and CHF. His chest x-ray demonstrated an early interstitial edema pattern. Recommendations: - Currently receiving intravenous diltiazem for control of his rapid atrial fibrillation. Will transition him to his usual outpatient beta lilly therapy. - Diuresis with intravenous doses of furosemide. - Resume his usual CHF regimen. - Can discuss with him the use of warfarin and followup in the anticoagulation clinic if his Eliquis is cost prohibitive. 07/12/17 15:37 Subjective: Shortness of breath. Objective: Vital Signs (8 Hrs) Temp Pulse Resp BP Pulse Ox 07/12/17 13:36 36.4 C 116 H 18 162/119 H 96 07/12/17 13:07 123 H 16 138/112 H 99 07/12/17 11:24 97 18 151/111 H 95 07/12/17 10:32 75 16 144/108 H 97 Intake/Output (24 Hrs) 07/11/17 07/12/17 07/13/17 05:59 05:59 05:59 Other: Weight 97.3 kg Result Diagrams: 07/12/17 09:07 07/12/17 09:07 - Physical Exam Constitutional: no apparent distress, obese Eyes: anicteric sclera Ears, Nose, Mouth, Throat: moist mucous membranes Cardiovascular: irregularly irregular (tachycardic) Respiratory: inspiratory crackles (at bases) Gastrointestinal: normoactive bowel sounds, no tenderness, no masses Skin: other (1+ edema) Neurologic: AAOx3 Psychiatric: not anxious ICD10 Worksheet Patient Problems: Problems Problem Status Onset Hypertension Acute Hypertensive urgency, malignant Acute Elevated troponin Acute New onset left bundle branch block (LBBB) Acute Hypertensive emergency Acute Atrial fibrillation Acute
[2017-07-12] MEDS ORDERED: WARFARIN SODIUM 5 MG TAB PO ONE (16:51)
[2017-07-12] MEDS ORDERED: FUROSEMIDE 40 MG/4 ML VIAL IVP ONE (16:53)
[2017-07-12] MEDS ORDERED: ACETAMINOPHEN 325 MG TAB PO PRN (16:53)
[2017-07-12] MEDS ORDERED: ONDANSETRON 4 MG/2 ML VIAL IVP PRN (16:53)
--- NOTE | 2017-07-12 17:29 | GHP ---
[f rep st] HISTORY AND PHYSICAL DATE OF ADMISSION: 07/12/2017 CHIEF COMPLAINT: Palpitations. HISTORY OF PRESENT ILLNESS: The patient is a 61-year-old male with a known history of atrial fibrill ation and nonischemic cardiomyopathy, who stopped taking all of his medications on June 13. He describes an ongoing ortega with his insurance company regarding his Eliquis and the escalating costs related to that. He got so angry regarding this ongoing ortega that he decided to walk away from [employer] completely and stopped all of his medications, including his Coreg and Lasix as well . He did well for the first couple days but has now presented to the hospital with a 15-pound weight gain, as well as severe palpitations for many days. He denies any chest pain or shortness of breath , PND or orthopnea. He does complain of abdominal distention, which he attributes all to fluid build up. PAST MEDICAL HISTORY: 1. Atrial fibrillation. 2. Hypertension. 3. Nonischemic cardiomyopathy. 4. Chronic systolic congestive heart failure. Ejection fraction 25%. 5. Left bundle branch block. 6. Diabetes type 2, diet controlled. 7. Chronic kidney disease, baseline creatinine 1.4. 8. Traumatic brain injury. MEDICATIONS: Please see computer record for full detailed list. ALLERGIES: No known drug allergies. SOCIAL HISTORY: No smoking. No alcohol. He is on disability. He lives alone. He has 3 ex-wives. He describes being very successful and wealthy in his early life, but as a result of his traumatic b rain injury and erratic decisions, having lost it all. REVIEW OF SYSTEMS: Complete review of systems obtained. Review of systems negative for constitution al, HEENT, GI, pulmonary, cardiovascular, , hematology, skin, musculoskeletal, endocrine, psychiatr ic, except for positives and negatives as in HPI. FAMILY HISTORY: Reviewed, noncontributory to presenting complaint. PHYSICAL EXAMINATION: GENERAL: Well-developed, well-nourished male, in no acute distress. VITAL SI GNS: Temperature 36.4, pulse 123, blood pressure 162/119, saturating 96% on room air. EYES: Normal conjunctivae. Pupils react to light. ENT: Normal ears and nose. Hearing intact. MOUTH: Normal teeth. Oropharynx moist. NECK: Trachea midline. No thyromegaly. CHEST: Normal effort. LUNGS: Clear to auscultation bilaterally. CARDIOVASCULAR: Regular rate and rhythm. No murmur. No lower e xtremity edema. ABDOMEN: Soft, nontender. No hepatosplenomegaly. SKIN: Warm, dry, intact. No ra sh. MUSCULOSKELETAL: No cyanosis or clubbing. Strength 5/5 upper and lower extremities. NEUROLOGI C: Cranial nerves intact. Normal sensation light touch. PSYCH: Alert and oriented x3. Normal aff ect. Normal judgment. Normal memory. LABORATORY DATA: White count 10.29, hematocrit 51.3, platelets 310. Sodium 139, potassium 4.1, chlo ride 101, bicarb 19, BUN 30, creatinine 1.4, glucose 160. Troponin is 0.047. BNP is 8500. INR is 1 .12. EKG reviewed by me. My personal interpretation is atrial fibrillation with left bundle branch block and rapid ventricular response. Heart rate of 133. Chest x-ray shows pulmonary edema. ASSESSMENT/PLAN: 1. Atrial fibrillation with rapid ventricular response. This is secondary to medication noncomplian ce. We will restart him on his Coreg. His Eliquis has been cost prohibitive so we will transition h im to warfarin instead. He is agreeable to this plan. 2. Acute on chronic systolic congestive heart failure. He is volume overloaded due to Lasix noncomp liance. Will resume Lasix and give him a couple doses IV. 3. Chronic kidney disease. He is at his baseline creatinine 1.4. 4. Borderline troponin. This is strained due to the rapid rates of his atrial fibrillation. He has a known nonischemic cardiomyopathy. I do not think he needs any further ischemic workup. 5. Traumatic brain injury, on disability. He describes a long-standing history of erratic decision making. He now understands better the need for ongoing cardiac medications. CODE STATUS: Full. ADMISSION STATUS: 1. Will admit to observation. Reevaluate tomorrow regarding ongoing need for hospitalization. 2. DVT prophylaxis. He is low risk and is being anticoagulated. /[id number]/MODL
[2017-07-12] MEDS: CARVEDILOL 25 MG TAB PO SCH (18:57)
[2017-07-12] MEDS: ENOXAPARIN 100 MG/ML SYR SC SCH (19:59)
[2017-07-12] MEDS ORDERED: ASPIRIN 81 MG CHEWABLE TAB PO SCH (21:00)
[2017-07-13 05:41] LABS: PLATELET COUNT 249 10^3/uL (150-400)
[2017-07-13 07:21] VITALS: BP 120/91; TEMP 97.5
[2017-07-13] MEDS: ENOXAPARIN 100 MG/ML SYR SC SCH (08:34)
[2017-07-13] MEDS: CARVEDILOL 25 MG TAB PO SCH (08:35)
[2017-07-13] MEDS ORDERED: FUROSEMIDE 40 MG/4 ML VIAL IVP SCH (09:00)
[2017-07-13] MEDS ORDERED: amLODIPine BESYLATE 5 MG TAB PO SCH (09:00)
[2017-07-13] MEDS ORDERED: SPIRONOLACTONE 25 MG TAB PO SCH (09:00)
[2017-07-13] MEDS ORDERED: PNEUMOCOCCAL 0.5ML VACCINE VIAL IM ONE (10:24)
--- NOTE | 2017-07-13 10:34 | ASMTLACE ---
JOHNSON Length of stay for Answers: 1 day current admission Acuity / Level of Answers: No Care: Did the patient have an inpatient admission? Comorbidities - select Answers: Other Notes: traumatic brain all that apply injury, elevated troponin, afib # of Emergency department Answers: 0 visits in the last 6 months Social determinants Answers: Mental health diagnosis (anxiety, depression, pers onality disorders, etc.) Score: 5 Date Signed: 07/13/2017 10:33 AM Electronically Signed By:Lolis Peralta RN
[2017-07-13 12:15] VITALS: PULSE 88; RESP 18; O2SAT 96
--- NOTE | 2017-07-13 15:50 | ASDISCHSUM ---
Discharge Information Plan Status:Home with No Needs Medically Cleared to Leave:07/12/2017 Discharge Date:07/13/2017 12:37 PM CM D/C Disposition:Home, Routine, Self-Care ADT D/C Disposition:Home, Routine, Self-Care Projected Discharge Date:07/13/2017 12:37 PM Transportation at D/C:Self Discharge Delay Reason: Follow-Up Date:07/13/2017 12:37 PM Discharge Slot: Final Diagnosis: Placement Information Patient Contact Information Contact Name:BETHANY Relationship: Address: Home Phone: Work Phone: City: Alternate Phone: State/[place] Code: Email: Financial Information Financial Class:Medicare Advantage Plans Primary Plan Desc:[facility] [place] Primary Plan Number:[id number] Secondary Plan Desc: Secondary Plan Number: Assessment Information LACE LACE Length of stay for Answers: 1 day current admission Acuity / Level of Answers: No Care: Did the patient have an inpatient admission? Comorbidities - select Answers: Other Notes: traumatic brain all that apply injury, elevated troponin, afib # of Emergency department Answers: 0 visits in the last 6 months Social determinants Answers: Mental health diagnosis (anxiety, depression, pers onality disorders, etc.) Score: 5 Date Signed: 07/13/2017 10:33 AM Electronically Signed By:Lolis Peralta RN Case Management Discharge Plan Note Case Management Discharge Discharge Order Complete? Answers: Yes Patient to Obtain Answers: Independently Medications Transportation Arranged Answers: Other Notes: self Discharge Comments Notes: 07/13/2017 Case Management D/C Note Met w/pt to discuss need for advocate. Pt was hesitant to contact any agencies d/t previous negative experiences. Pt does not want anyone to come to his home and refused flight engineer manager. Provided phone numbers for the [facility] [phone]. Provided info on the [employer] (fiduciary and case management services focusing on trust and future planning) [phone]. Provided website for [facility] connection: pt advocates to attend MD appointments and assist clients with decision making. Also provided info on the [place] [facility] [employer] at [phone]. Encouraged pt to consider need for advocate to assist with more complex decisions. Pt reports house is owned by sister who resides in [place]. Pt is not in contact with his sister at this time. Pt to d/c independently with plans to attend the Coumadin Clinic. Encouraged pt to pick a clerical specialist. Date Signed: 07/13/2017 03:49 PM Electronically Signed By:Lolis Peralta RN Intervention Information Intervention Type:*MCKEON-Signed Date of Service:07/13/2017 10:05 AM Patient Type:Observation Staff Member:Janee Toussaint Hours: Discipline: Severity: Comment:
[2017-07-13] MEDS ORDERED: WARFARIN SODIUM 5 MG TAB PO ONE (16:00)
--- NOTE | 2017-07-13 21:15 | GDS ---
[f rep st] DISCHARGE SUMMARY DISCHARGE DIAGNOSES: 1. Atrial fibrillation with rapid ventricular response. 2. Acute on chronic systolic congestive heart failure. 3. Medication noncompliance. 4. Chronic kidney disease. Baseline creatinine 1.4. 5. Borderline troponin with known nonischemic cardiomyopathy. 6. Traumatic brain injury on disability. HISTORY: The patient is a 61-year-old male with a known history of atrial fibrillation and nonischem ic cardiomyopathy. He is chronically on Eliquis and is having difficulty with the co-pay for this me dication. He describes frequent calls to the insurance company and the pharmacy and the cost continu ed to escalate. This made him so angry that he decided to walk away from the medical system complete ly and stopped all of his medications including his Coreg and Lasix. He did well for the first coupl e days but subsequently developed worsening severe palpitations and a 15 pound weight gain. He has a known ejection fraction of only 25% and has had previous cardiac catheterization showing no evidence of coronary artery disease. He was admitted to observation and restarted on his previous medication regimen and rapidly returned back to a compensated state. Given his difficulties affording Eliquis we did transition him instead on to Coumadin. He will be bridged with Lovenox and be followed in the Coumadin Clinic which was arr anged prior to discharge. DISCHARGE MEDICATIONS: Please see computer record for full detailed list. New medications: 1. Lovenox 100 mg subcu twice daily, to continue until INR is greater than 2. 2. Warfarin 5 mg p.o. daily. Discontinued medications: 1. Eliquis 5 5 mg p.o. twice daily. 2. Amlodipine 5 mg p.o. daily as the blood pressures did not tolerate that additional blood pressure medication during this hospitalization. Continued medications: 1. Coreg 25 mg p.o. twice daily. 2. Lasix 60 mg p.o. daily. 3. Spironolactone 25 mg p.o. daily. 4. Aspirin 81 mg p.o. daily. ADDITIONAL DISCHARGE INSTRUCTIONS: 1. The patient referred to the Coumadin Clinic with next INR check this upcoming . 2. He does not have a primary care doctor. He was referred to either Dr. Pulido or Dr. Joel for furt her care. 3. Discontinue Norvasc and follow blood pressure readings at home. Call MD for blood pressure great er than 160/100. 4. The patient is having difficulties with his disability and was given resources and advice in that regard. Greater than 30 minutes of time was spent arranging this discharge. Patient seen and examined by me on day of discharge. /[id number]/MODL
== END 2017-07-13 12:37 | disposition home or self-care (01) ==
LOC: F2W 13:18
PROVIDERS: ADMIT Internal Medicine; ATTEND Internal Medicine
DX: I48.91 Unspecified atrial fibrillation (principal); I50.23 Acute on chronic systolic (congestive) heart failure; N18.9 Chronic kidney disease, unspecified; I42.9 Cardiomyopathy, unspecified; S06.9X9D Unspecified intracranial injury with loss of consciousness of unspecified duration, subsequent encounter; I10 Essential (primary) hypertension; Z91.14 Patient's other noncompliance with medication regimen
CPT/HCPCS: 71046; 93005; G0378; J1650; J1940; 96374

== ENCOUNTER 2017-08-19 06:04 | Day surgery (SDC) | payer OTHER ==
[2017-08-19] MEDS ORDERED: NS 1,000 ML IV ONE (06:11)
[2017-08-19] MEDS ORDERED: ATROPINE SULFATE 1 MG/10 ML SYR IVP ONE (06:11)
--- NOTE | 2017-08-19 06:34 | CPEKG ---
Heart Rate: 102 RR Interval: 588 QRSD Interval: 160 QT Interval: 404 QTC Interval: 527 QRS [place]: -67 T Wave [place]: 107 EKG Severity - ABNORMAL ECG - EKG Impression: ATRIAL FIBRILLATION, V-RATE 67-125 EKG Impression: ATYPICAL LEFT BUNDLE BRANCH BLOCK Electronically Signed By: Huey Young 25-Aug-2017 10:52:04
[2017-08-19] MEDS ORDERED: fentaNYL 100 MCG/2 ML INJ IVP ONE (06:59)
[2017-08-19] MEDS ORDERED: MIDAZOLAM 2 MG/2 ML VIAL IVP ONE (06:59)
[2017-08-19] MEDS ORDERED: BENZOCAINE UNIT DOSE SPRAY HURRICAINE MM ONE (06:59)
[2017-08-19] MEDS ORDERED: LIDOCAINE 2% 100 MG/5 ML SYR ONE (07:53)
[2017-08-19] MEDS ORDERED: SUCCINYLCHOLINE CHLORIDE 200 MG/10 ML SYR IVP ONE (07:53)
[2017-08-19] MEDS ORDERED: PROPOFOL 200 MG/20 ML VIAL ONE (07:53)
[2017-08-19 07:58] LABS: INR 2.52 (0.83-1.16); PROTIME(PATIENT) 27.1 SEC (12.0-15.0)
[2017-08-19] MEDS ORDERED: DEXAMETHASONE 4 MG/ML VIAL IVP PRN (08:00)
[2017-08-19] MEDS ORDERED: ONDANSETRON 4 MG/2 ML VIAL IVP PRN (08:00)
[2017-08-19] MEDS ORDERED: PHENYLEPHRINE HCL 100 MCG/ML SYR IVP PRN (08:00)
[2017-08-19] MEDS ORDERED: ALBUTEROL 3 ML DEYVIAL IH PRN (08:00)
[2017-08-19] MEDS ORDERED: HYDROCODONE/APAP 5/325 TAB PO PRN (08:00)
[2017-08-19] MEDS ORDERED: LR 500 ML IV PRN (08:00)
[2017-08-19] MEDS ORDERED: fentaNYL 100 MCG/2 ML INJ IVP PRN (08:00)
[2017-08-19] MEDS ORDERED: ACETAMINOPHEN 500 MG TAB PO PRN (08:00)
[2017-08-19] MEDS ORDERED: NALOXONE HCL 0.4 MG/ML INJ IVP PRN (08:00)
--- NOTE | 2017-08-19 08:00 | PDANEPAE ---
ANE History of Present Illness a-fib s/f CELESTE/CV ANE Past Medical History - Cardiovascular History Hx Hypertension: Yes Hx CHF / Valvular Disease: Yes Cardiovascular History Comment: a fib, cardiomyopathy non ischemic, CHF - Pulmonary History Hx Oxygen in Use at Home: No Hx Sleep Apnea: No - Endocrine History Hx Diabetes: Yes - Renal History Hx Renal Disorders: Yes Renal History Comment: CRI - Neurological & Psychiatric Hx Hx Neurological and Psychiatric Disorders: Yes Neurological / Psychiatric History Comment: history of closed head injury - Chronic Pain History Chronic Pain: No ANE Review of Systems Review of Systems: - Exercise capacity Exercise capacity: >=4 METS ANE Patient History - Allergies Allergies/Adverse Reactions: No Known Allergies Allergy (Verified 12/12/16 14:30) - Home Medications Home medications: home medication list seen and reviewed (also on Coumadin) Home Medications: Aspirin [Aspirin 81mg (*)] 81 mg PO HS 01/01/17 [Last Taken 06/13/17] Herbals/Supplements -Info Only 1 ea PO DAILY 01/01/17 [Last Taken Unknown] Carvedilol [Coreg (*)] 25 mg PO BIDMEAL 07/12/17 [Last Taken 06/13/17] Furosemide [Lasix 20 MG (*)] 60 mg PO DAILY 07/12/17 [Last Taken 06/13/17] - Smoking Hx Smoking Status: Never smoked ANE Labs/Vital Signs - Labs Result Diagrams: 08/19/17 06:40 08/19/17 06:40 - Vital Signs Height: 170 cm Weight: 90.7 kg ANE Physical Exam - Airway Neck exam: FROM Mallampati Score: Class 2 Mouth exam: normal dental/mouth exam - Pulmonary Pulmonary: no respiratory distress - Cardiovascular Cardiovascular: regular rate and rhythym - ASA Status ASA Status: III ANE Anesthesia Plan Anesthesia Plan: GA with mask Total IV Anesthesia: Yes
--- NOTE | 2017-08-19 08:32 | PDGENHP ---
History & Physical Chief Complaint: Fatigue History of Present Illness: 61 year old male with symptomatic afib. He is anticoagulated with Coumadin. INR is therapeutic. Pertinent Past, Social, Family History: PMH: Afib , Acute on chronic CHF, Bipolar, DM, HTN, LBBB Relevant Physical Exam: Awake, Alert appropriate
--- NOTE | 2017-08-19 09:07 | POSTANESTH ---
Post Anesthetic Evaluation Cardiovascular Status: Normal, Stable Respiratory Status: Normal, Stable Level of Consciousness/Mental Status: Can Participate in Eval Pain Control: Adequate, Prn Tx Ordered Nausea/Vomiting Control: Adequate, Prn Tx Ordered Complications Possibly Related to Anesthesia: None Noted
--- NOTE | 2017-08-19 09:10 | CPR ---
[f rep st] NONINVASIVE CARDIAC PROCEDURE REPORT DATE OF PROCEDURE: 08/19/2017 PROCEDURES PERFORMED: Transesophageal echocardiogram and direct current cardioversion. INDICATION FOR PROCEDURE: Symptomatic atrial fibrillation. BRIEF HISTORY OF PRESENT ILLNESS: The patient is a pleasant 61-year-old gentleman with a known histo ry of paroxysmal atrial fibrillation with underlying left bundle branch block who has been anticoagul ated with Coumadin. His INR is therapeutic today at 2.4. He complains of significant fatigue with a trial fibrillation. He has subsequently been arranged for CELESTE-guided cardioversion. Consents were consigned for anesthesia, CELETSE, as well as cardioversion. Risks and benefits of the pro cedure were explained to the patient in detail. PROCEDURE IN DETAIL: After an appropriate level of sedation was achieved with anesthesia, the CELESTE pr obe was passed without incident. The CELESTE probe was used to take images of the left atrium and the le ft atrial appendage. There was no evidence of left atrial or left atrial appendage thrombus. The CELESTE probe was removed without incident. The patient underwent a single shock of 200 joules of biphasic synchronized energy with protestant o f normal sinus rhythm at approximately 67 beats per minute. At the time of this dictation, he is recovering with anesthesia. There have been no postoperative co mplications. PLAN: 1. The patient will be discharged home. 2. The patient has been instructed to remain on his current medications. 3. The patient has been instructed on the importance of remaining on anticoagulation with Coumadin. /[id number]/MODL
--- NOTE | 2017-08-19 10:12 | CPEKG ---
Heart Rate: 86 RR Interval: 698 P-R Interval: 200 QRSD Interval: 166 QT Interval: 456 QTC Interval: 546 P [place]: 63 QRS [place]: -62 T Wave [place]: 112 EKG Severity - ABNORMAL ECG - EKG Impression: SINUS RHYTHM EKG Impression: LEFT BUNDLE BRANCH BLOCK EKG Impression: COMPARED TO EKG DATED 07/12/2017 SINUS RHYTHM HAS REPLACED ATRIAL FIBRILLATION Electronically Signed By: Huey Young 25-Aug-2017 10:52:47
--- NOTE | 2017-08-20 13:47 | ECHO ---
[email or web address] [place] [id number] Main: [phone] Fax: Transesophageal Echocardiography Name: MAURICIO SERRATO MR#: [id number] Study Date: 08/19/2017 Study Time: 07:44 AM Date of : 1955 Age: 61 year(s) Height: ( ) Weight: ( ) BSA: Gender: Male Examination: CELESTE Indication: Atrial Fibrillation Image Quality: Contrast: Requested by: Leeroy Wu Heart Rate: Rhythm: Atrial fibrillation BP: 118 mmHg/104 mmHg Procedure Staff Pharmacy Intake Coordinator: Meme Bonner [facility] Reading Physician: Leeroy Wu MD Requesting Provider: CELESTE Exam Details Conclusions: No thrombus visualized in LA.. No thrombus in left appendage. Measurements: Chambers Valvular Assessment AV/MV Valvular Assessment TV/PV Normal Normal Normal Name Value Range Name Value Range Name Value Range Additional Measurements: Findings: Left Atrium: No thrombus visualized in LA.. Left Atrial Appendage: No thrombus in left appendage. l1n (No Signature Object) Patient: MAURICIO SERRATO Study Date: 08/19/2017 Page 1 of 1 07:44 AM [id number]
== END 2017-08-19 13:30 | disposition home or self-care (01) ==
LOC: FCATH 06:04
PROVIDERS: ATTEND Internal Medicine Cardiovascular Disease
PROC: B245ZZ4 Ultrasonography of Left Heart, Transesophageal (ICD-10-PCS; principal; 2017-08-19)
PROC: 5A2204Z Restoration of Cardiac Rhythm, Single (ICD-10-PCS; principal; 2017-08-19)
DX: I48.91 Unspecified atrial fibrillation (principal); R53.83 Other fatigue; I50.23 Acute on chronic systolic (congestive) heart failure; I13.0 Hypertensive heart and chronic kidney disease with heart failure and stage 1 through stage 4 chronic kidney disease, or unspecified chronic kidney disease; N18.9 Chronic kidney disease, unspecified; E11.22 Type 2 diabetes mellitus with diabetic chronic kidney disease; I44.7 Left bundle-branch block, unspecified; Z91.128 Patient's intentional underdosing of medication regimen for other reason; I42.9 Cardiomyopathy, unspecified; E66.9 Obesity, unspecified; Z68.31 Body mass index [BMI] 31.0-31.9, adult; F31.9 Bipolar disorder, unspecified; Z79.01 Long term (current) use of anticoagulants; Z87.891 Personal history of nicotine dependence; Z87.820 Personal history of traumatic brain injury
CPT/HCPCS: J0330; J0461; J2001; J2704